=== PATIENT | female | born 1995 | race Caucasian/White ===

== ENCOUNTER 2016-08-22 14:50 | Emergency (ER) | payer OTHER ==
[~2016-08-22] VITALS: Ht 162.6 cm; Wt 47.6 kg
[~2016-08-22 14:50] MED LIST: ATIVAN0.5 MG PO; BACTRIM,SEPT1 TABLET PO; BACTROBAN NASAL1 G1 BOTH NARES; CEFDINIR300 MG PO; CLEOCIN300 MG PO; COLACE100 MG PO; KEFLEX500 MG PO; KENALOG,ARISTOC15 GM TP; LORAZEPAM0.5 MG PO; MELATONIN3 MG; PRENATAL PLUS1 EAC5 PO; ULTRAM50 MG PO; WELLBUTRIN XL300 MG; ZOFRAN ODT4 MG PO; [UNRECOGNIZED DRUG - REMARK]
[2016-08-22 15:44] LABS: MCH 31.2 PG (29.0-34.0); MCHC 33.3 G/DL (30.0-36.0); MCV 93.5 FL (83-99); MEAN PLAT.VOLUME 10.7 uM^3 (9.5-12.4); PLATELET COUNT 206 K/uL (156-360); RBC DIS.WIDTH-CV 12.2 % (11.8-14.6); RBC DIS.WIDTH-SD 42.1 % (39-53); RED BLOOD COUNT 4.49 M/uL (3.80-5.20); WHITE BLOOD COUNT 10.5 K/uL (4.1-10.2)
[2016-08-22 15:55] LABS: ADD MIUA? YES; BILIRUBIN NEGATIVE; BLOOD LARGE; COLOR YELLOW ((YELLOW)); GLUCOSE (STRIP) NEGATIVE; KETONES NEGATIVE; LEUKOCYTES TRACE; NITRITE NEGATIVE; PROTEIN (STRIP) 30; SPECIFIC GRAVITY 1.024 (1.000-1.030); UROBILINOGEN 0.2 MG/DL (0.2-1.0)
[2016-08-22 15:58] LABS: CHLORIDE 109 mEq/L (99-109); POTASSIUM 3.8 mEq/L (3.7-5.4); SODIUM 141 mEq/L (136-147)
[2016-08-22 16:00] LABS: GLUCOSE 92 mg/dL (70-99)
[2016-08-22 16:02] LABS: ANION GAP 8 MEQ/L (2-14); TOTAL BILIRUBIN 0.5 mg/dL (0.0-1.0)
[2016-08-22 16:04] LABS: ALKALINE PHOSPHATASE 35 IU/L (3-129); GFR ESTIMATE (CALCULATED) > 59 mL/min/
[2016-08-22 16:05] LABS: UREA NITROGEN (BUN) 9 mg/dL (9-23)
[2016-08-22 16:10] LABS: BACTERIA NONE SEEN /HPF; EPITHELIAL CELLS RARE /HPF; MUCUS 2+ /LPF; RED BLOOD CELLS 0-5 /HPF (0-5); UCUL ADDED? NO; WHITE BLOOD CELLS 0-5 /HPF (0-5)
[2016-08-22 16:14] LABS: QUANTITATIVE HCG < 4.0 MIU/ML
[2016-08-22 16:26] LABS: LIPASE 17 U/L (1.0-51.0)
[2016-08-22] MEDS ORDERED: ADVIL200 MG PO (18:36)
[2016-08-22] MEDS ORDERED: LIALDA1.2 GM PO (20:12)
[2016-08-22] MEDS ORDERED: MOTRIN600 MG PO (20:12)
[2016-08-22] MEDS ORDERED: CIPRO500 MG PO (20:12)
[2016-08-22] MEDS ORDERED: FLAGYL500 MG PO (20:12)
[2016-08-22] MEDS ORDERED: ULTRACET1 TABLET PO (20:12)
[2016-08-22] MEDS ORDERED: MIRALAX255 GM PO (20:13)
[2016-08-22 22:40] VITALS: BP 108/60
[2016-08-23] MEDS ORDERED: CIPRO500 MG PO (14:05)
== END 2016-08-22 22:45 | disposition home or self-care (01) ==
LOC: OPR 14:50 → EME 14:50
DX: K59.00 Constipation, unspecified (principal); R10.9 Unspecified abdominal pain
CPT/HCPCS: 74022; 74177; 80053; 81003; 83690; 84702; 85027; 99281; 99285; J3010

== ENCOUNTER → 2016-08-24 | Outpatient (CLI) | payer OTHER ==
[~2016-08-24] VITALS: Ht 162.6 cm; Wt 47.2 kg
[~2016-08-24] MED LIST changes: +ADVIL200 MG PO; +CIPRO500 MG PO; +FLAGYL500 MG PO; +LIALDA1.2 GM PO; +MIRALAX255 GM PO; +MOTRIN600 MG PO; +ULTRACET1 TABLET PO
== END | disposition home or self-care (01) ==
LOC: AMB 13:40
DX: R10.30 Lower abdominal pain, unspecified (principal); R11.0 Nausea; K62.1 Rectal polyp; K64.8 Other hemorrhoids; J45.990 Exercise induced bronchospasm; F32.9 Major depressive disorder, single episode, unspecified; F41.9 Anxiety disorder, unspecified; Z68.1 Body mass index [BMI] 19.9 or less, adult; Z80.0 Family history of malignant neoplasm of digestive organs; Z82.49 Family history of ischemic heart disease and other diseases of the circulatory system; Z83.79 Family history of other diseases of the digestive system; Z88.5 Allergy status to narcotic agent
CPT/HCPCS: 88305; 88312; 88342 TC; J2250; J3010